=== PATIENT | female | born 1970 | race Caucasian/White ===

== ENCOUNTER 2025-04-21 09:07 | Outpatient (CLI) | payer BC ==
[2025-04-21 10:54] LABS: Bacteria/HPF 1+ HPF (None Seen); Glucose, Urine (Dipstick) Normal (Negative); Leukocyte Negative Leu/uL (Negative); Protein, Urine (Dipstick) Negative (Neg-Trace); RBC/HPF 0-3 HPF (0-3); Specific Gravity, Urine 1.007 (1.002-1.036); WBC/HPF 0-3 HPF (0-3)
[2025-04-21 10:58] LABS: INR-International Normal Ratio 0.9; Prothrombin Time 12.3 sec (12.0-14.7)
[2025-04-21 11:00] LABS: Anion Gap 14 mmol/L (10-20); BUN (Urea Nitrogen) 14 mg/dL (9.8-20.1); Calc. Creatinine Clearance 0 mL/min (70-130); Calcium 9.4 mg/dL (7.8-10.44); Carbon Dioxide 27 mmol/L (22-29); Chloride 99 mmol/L (98-107); Glucose 86 mg/dL (70-105); Potassium 3.8 mmol/L (3.5-5.1); Sodium 136 mmol/L (136-145)
[2025-04-21 11:02] LABS: #Basophils 0.03 10x3/uL (0.0-0.2); #Eosinophils 0.09 10x3/uL (0.0-0.7); #Monocytes 0.29 10x3/uL (0.11-0.59); #Neutrophils 1.71 10x3/uL (1.40-6.50); %Basophils 0.9 % (0.0-1.0); %Eosinophils 2.8 % (0.0-10.0); %Lymphocytes 32.9 % (21.0-51.0); %Monocytes 9.2 % (0.0-10.0); %Neutrophils 54.2 % (42.0-75.0); Hematocrit 40.5 % (36.0-47.0); Hemoglobin 13.0 g/dL (12.0-16.0); Mean Corpuscular Hemoglobin 29.7 pg (27.0-31.0); Mean Corpuscular Volume 92.5 fL (78.0-98.0); Platelet Count 178 10x3/uL (130-400); Red Blood Cell (RBC) Count 4.38 mill/uL (4.20-5.40); White Blood Cell (WBC) Count 3.16 10x3/uL (4.8-10.8)
== END 2025-04-21 09:08 | disposition home or self-care (01) ==
LOC: LABBT 09:07
PROVIDERS: ATTEND Orthopaedic Surgery
DX: Z01.818 Encounter for other preprocedural examination (principal); M17.12 Unilateral primary osteoarthritis, left knee
CPT/HCPCS: 71046; 80048; 81001; 85025; 85610; 87081; 93005; 93010

== ENCOUNTER 2025-04-21 10:02 | Outpatient (CLI) | payer OTHER | END 2025-04-21 10:03 | disposition home or self-care (01) | LOC: CT 10:02 | PROVIDERS: ATTEND Orthopaedic Surgery | DX: Z01.818 Encounter for other preprocedural examination (principal); M17.12 Unilateral primary osteoarthritis, left knee ==

== ENCOUNTER 2025-04-28 08:06 | Observation (INO) | payer BC ==
[2025-04-28] MEDS ORDERED: Tranexamic Acid 1,000 MG/10 ML VIAL ONE ×2 (08:48→12:57)
[2025-04-28] MEDS ORDERED: Ropivacaine 0.5% HCl/PF (150 MG/30 ML VIAL) ONE (08:49)
[2025-04-28] MEDS ORDERED: Vancomycin 1 GM/200 ML (FROZEN) BAG ONE (08:49)
[2025-04-28] MEDS ORDERED: Lidocaine 1% PF 5 ML VIAL ONE (09:13)
[2025-04-28] MEDS ORDERED: HYDROcodone/Acetaminophen 10/325 mg Tablet PO PRN (09:30)
[2025-04-28] MEDS ORDERED: Ondansetron PF 4 MG/2 ML Vial IVP PRN ×2 (09:30→11:06)
[2025-04-28] MEDS ORDERED: Ropivacaine 0.2% 550 ML 550 ML NERVE BLCK SCH (09:30)
[2025-04-28] MEDS ORDERED: CEFAZOLIN 2 GM VIAL ONE (09:35)
[2025-04-28] MEDS ORDERED: PROPOFOL 200 MG/20 ML VIAL ONE (09:45)
[2025-04-28] MEDS ORDERED: Glycopyrrolate 0.2 MG/ML 5 ML SYRINGE ONE (09:45)
[2025-04-28] MEDS ORDERED: Ketamine In 0.9 % NaCl 50 MG/5 ML SYRINGE ONE (10:12)
[2025-04-28] MEDS ORDERED: diphenhydrAMINE 25 MG CAP PO PRN (11:06)
[2025-04-28] MEDS ORDERED: Acetaminophen 325 MG TAB PO PRN (11:06)
[2025-04-28] MEDS ORDERED: Ondansetron PF 4 MG/2 ML Vial ONE (11:10)
[2025-04-28] MEDS ORDERED: fentaNYL PF 100 MCG/2 ML SYRINGE ONE (11:29)
[2025-04-28] MEDS ORDERED: HYDROmorphone 0.5 MG/0.5 ML SYRINGE ONE ×3 (11:30→12:18)
[2025-04-28] MEDS: HYDROcodone/Acetaminophen 10/325 mg Tablet PO PRN (14:54)
[2025-04-28] MEDS: Ketorolac Tromethamine 30 MG (1 mL) VIAL IVP SCH (14:56)
[2025-04-28 15:46] VITALS: BMI 27.4
[2025-04-28 16:25] VITALS: BMI 28.7
[2025-04-28] MEDS: Vancomycin 1 GM in Premix 1 BAG IVPB SCH (20:35)
[2025-04-28] MEDS: Baclofen 10 MG TAB PO SCH (20:35)
[2025-04-28] MEDS: Aspirin 81 mg Enteric Coated Tablet PO SCH (20:35)
[2025-04-29 04:56] LABS: Hematocrit 32.5 % (36.0-47.0); Hemoglobin 10.7 g/dL (12.0-16.0); Mean Corpuscular Hemoglobin 29.9 pg (27.0-31.0); Mean Corpuscular Volume 90.8 fL (78.0-98.0); Platelet Count 179 10x3/uL (130-400); Red Blood Cell (RBC) Count 3.58 mill/uL (4.20-5.40); White Blood Cell (WBC) Count 4.91 10x3/uL (4.8-10.8)
[2025-04-29 08:13] VITALS: BP 117/76; TEMP 99.6
[2025-04-29] MEDS: Losartan 25 MG TAB PO SCH (08:36)
[2025-04-29] MEDS: Senokot S 8.6-50 MG TAB PO SCH (08:36)
[2025-04-29] MEDS: Multivitamin W/ Minerals 1 TAB PO SCH (08:36)
[2025-04-29] MEDS: Pregabalin 50 MG CAP PO SCH (08:37)
[2025-04-29] MEDS: Cholecalciferol 1,000 UNITS (25 MCG) TAB PO SCH (08:37)
[2025-04-29] MEDS: Ferrous Gluconate 324 MG TAB PO SCH (08:38)
[2025-05-01] MEDS ORDERED: Meloxicam 15 MG TAB PO SCH (09:00)
[2025-05-01] MEDS ORDERED: FLU (Fluarix Triv) 25-26 (6MOS UP)/PF 45 MCG/0.5 ML Syringe IM ONE (09:00)
== END 2025-04-29 11:13 | disposition home or self-care (01) ==
LOC: SDC 08:06 → SURG A 13:38 → SDC 15:33
PROVIDERS: ADMIT Orthopaedic Surgery; ATTEND Orthopaedic Surgery
PROC: 0SRD0JZ Replacement of Left Knee Joint with Synthetic Substitute, Open Approach (ICD-10-PCS; principal; 2025-04-28)
PROC: 3E0T3BZ Introduction of Anesthetic Agent into Peripheral Nerves and Plexi, Percutaneous Approach (ICD-10-PCS; 2025-04-28)
DX: M17.12 Unilateral primary osteoarthritis, left knee (principal); Z85.820 Personal history of malignant melanoma of skin; Z88.8 Allergy status to other drugs, medicaments and biological substances; Z88.6 Allergy status to analgesic agent
CPT/HCPCS: 0055T; 27447; 64448; 36415; 85027; A4306; C1713; C1776; C1889; J1100; J1171; J1885; J2250; J2405; J2704; J2795; J3010; J3373; J3490; J7030